=== PATIENT | male | born 1965 | race Caucasian/White ===

== ENCOUNTER 2021-01-30 07:33 | Outpatient (CLI) | payer OTHER, SELFPAY ==
--- NOTE | ~2021-01-30 | MR_ITS ---
EXAMINATION: MR knee LT wo con DATE: 01/30/2021 08:22 INDICATION: Meniscal injury TECHNIQUE: Magnetic resonance imaging (MRI) of the left knee was performed without intravenous contra st. Sequences included coronal PD-weighted FSE, coronal PD-weighted FS FSE, sagittal T2-weighted FSE , sagittal PD-weighted FS FSE and axial PD weighted fat saturated FSE. COMPARISON: None. FINDINGS: Medial compartment: There is a longitudinal horizontal tear extending to inferior articular surface at the junction of th e middle and peripheral thirds at the posterior horn transitioning into the peripheral third of the p osterior body. There is some partial-thickness chondral fissuring along the anterior weightbearing me dial femoral condyle and at the central aspect of the medial tibial plateau. Lateral compartment: Lateral meniscus is normal. Deep chondral fissuring with minimal underlying subarticular edema along the posterior aspect of the lateral tibial plateau and posterior weightbearing lateral femoral condyl e. Additional partial thickness chondral fissuring without underlying degenerative subchondral change s at the anterior weightbearing lateral femoral condyle. Patellofemoral compartment: Small region of partial-thickness chondral fissuring without degenerative subchondral changes at the medial patellar facet. The trochlear and remaining patellar cartilage is normal. Ligaments and tendons: Anterior and posterior cruciate ligaments are normal. The medial collateral ligament and fibular joshua ateral ligament complex are normal. The extensor mechanism is normal. The visualized medial and later al hamstring tendons as well as the iliotibial band are normal. Fluid: Physiologic amount of fluid in the joint space. No loose osteochondral bodies identified. Osseous/other: There is marrow edema along the medial rim of the anterior weightbearing medial femoral condyle where there is subtle linear subarticular low signal intensity suggesting tiny impaction fracture there is additional marrow edema along the anteromedial aspect of the medial tibial plateau below the level o f the articular cortex and without evident linear fracture line suspicious for a bone contusion. Othe rwise normal marrow signal with no pathologic marrow replacing process. IMPRESSION: 1. Bone contusion along the nonarticular anteromedial aspect of the medial tibial plateau and tiny vasquez barticular impaction fracture along the medial rim of the anterior weightbearing medial femoral condy le. 2. Longitudinal horizontal tear at the posterior horn and posterior body of the medial meniscus. 3. 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 Reviewed, dictated and finalized at location A. IMPRESSION: 1. Bone contusion along the nonarticular anteromedial aspect of the medial tibi al plateau and tiny subarticular impaction fracture along the medial rim of the anterior weightbearing medial femoral condyle. 2. Longitudinal horizontal tear at the posterior horn and posterior body of the medial meniscus. 3. 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
== END 2021-01-30 07:34 | disposition home or self-care (01) ==
LOC: ANHIMG 07:39
PROVIDERS: PCP Family Medicine; Visit Provider Family Medicine
DX: S83.242A Other tear of medial meniscus, current injury, left knee, initial encounter (principal); X58.XXXA Exposure to other specified factors, initial encounter; M17.12 Unilateral primary osteoarthritis, left knee
CPT/HCPCS: 73721

== ENCOUNTER 2022-01-24 07:00 | Emergency (ER) | payer OTHER, SELFPAY ==
[2022-01-24 06:54] VITALS: PULSE 88; RESP 20; TEMP 36.4; O2SAT 98
--- NOTE | 2022-01-24 06:59 | ECG_ITS ---
Measurements Intervals [place] Rate: 76 P: 72 CA: 173 QRS: 78 QRSD: 110 T: 64 QT: 366 QTc: 412 Interpretive Statements SINUS RHYTHM INCOMPLETE RIGHT BUNDLE BRANCH BLOCK [90+ ms QRS DURATION, TERMINAL R IN V1/V2, 40+ ms S IN I/aVL/V4/V5/V6] NO PREVIOUS ECG AVAILABLE FOR COMPARISON Electronically Signed On 01-24-2022 16:13:29 CDT by Ana Méndez M.D.
[2022-01-24 07:36] VITALS: BP 118/79; PULSE 89; RESP 18; O2SAT 98
--- NOTE | 2022-01-24 07:42 | ED.GENADULT ---
HPI - General Adult General Chief complaint: Allergic Reaction Stated complaint: WASP STING Time Seen by Provider: 01/24/22 07:06 History of Present Illness HPI narrative: 56-year-old male with a previous report of allergic reaction to wasp presented emergency department for evaluation of a wasp sting at approximately 6:00 this morning. Patient states he first noticed on his neck and went to swatted and then was bit on his left middle finger. Patient called EMS for this. Patient was treated with Benadryl IV by EMS. Patient states he had been previously instructed to use an EpiPen but has not had one for approximately 20 years. Patient states initially he did have some chest tightness but states this has resolved. At this time patient denies any chest pain or shortness of breath. Patient denies any swelling of his face or airway. Patient states he does feel at his baseline at this time. Related Data Home Medications Medication Instructions Recorded Confirmed esomeprazole magnesium 20 mg 20 mg PO DAILY 02/02/21 03/18/21 capsule,delayed release (Nexium) tadalafil 20 mg tablet (Cialis) 20 mg PO DAILY PRN 02/02/21 03/18/21 warfarin 4 mg tablet 4 mg PO QMWF 02/02/21 03/18/21 Allergies Allergy/AdvReac Type Severity Reaction Status Date / Time No Known Allergies Allergy Verified 03/18/21 09:42 Review of Systems Review of Systems: CONSTITUTIONAL: Denies fever, chills, or sweats. EYES: Denies visual changes, redness, or discharge. ENT: Denies rhinorrhea, congestion, sore throat, or otalgia. CARDIOVASCULAR: Denies chest pain, palpitations, or edema. RESPIRATORY: Denies cough or dyspnea. GASTROINTESTINAL: Denies abdominal pain, nausea, vomiting, or diarrhea. GENITOURINARY: Denies dysuria or hematuria. SKIN: See HPI MUSCULOSKELETAL: Denies back pain, joint pain, or myalgia. NEUROLOGIC: Denies headache, numbness, or weakness. [facility] Past Medical History Medical History History of bladder cancer History of cluster headache History of DVT (deep vein thrombosis) History of pulmonary embolism (~2011) History of stress test Surgical History Surgical History History of neck surgery History of repair of rotator cuff Irineo Shoulders (2004 & 2006) History of surgical removal of meniscus of knee (~03/2018) Family History Family History Mother Diabetes mellitus Cancer Father COPD (chronic obstructive pulmonary disease) Social History Social History Smoking packs per day: 1 Smoking cigarettes per day: 20.0 Smoking status: Current every day smoker Tobacco type: cigarettes Alcohol intake: never Exam Narrative: APPEARANCE: Well appearing, no pain, no distress, well-nourished. HEAD: normocephalic, atraumatic. EYES: PERRLA/EOMI, conjunctivae clear. NOSE: Normal no drainage THROAT: Pharynx clear, no exudate. NECK: Supple. No adenopathy, no masses. RESPIRATORY: Airway patent, respirations nonlabored. Clear to auscultation bilaterally, no rales, rhonchi, wheezing. CARDIOVASCULAR: Regular rate and rhythm without murmurs rubs or gallops. ABDOMINAL: Soft, nontender, nondistended, normal bowel sounds MUSCULOSKELETAL: Moves all extremities. Strength/ROM intact, No edema, No calf tenderness. Affected finger is neurovascular intact NEURO: Alert. Cranial nerves II through XII intact. Grossly intact SKIN: Swelling to left middle finger. PSYCHIATRIC: Normal affect/mood. Course Course Emergency Course: Patient continues to deny any complaints. Patient was started on a short course of prednisone. Patient was encouraged of close follow-up with his primary care physician. Vital Signs Vital signs: Vital Signs Temperature 97.6 F 01/24/22 06:54 Pulse Rate 88 01/24/22 06:54 Respiratory Rate 20
[2022-01-24] MEDS: FAMOTIDINE 20 MG/2 ML VIAL IV PUSH (07:50)
[2022-01-24] MEDS: predniSONE 10 MG TABLET 50 MG PO (07:51)
[2022-01-24 08:42] VITALS: BP 123/84; PULSE 75; RESP 20; O2SAT 99
== END 2022-01-24 08:55 | disposition home or self-care (01) ==
PROVIDERS: Emergency Provider Emergency Medicine; PCP Family Medicine
DX: T63.461A Toxic effect of venom of wasps, accidental (unintentional), initial encounter (principal); Z86.718 Personal history of other venous thrombosis and embolism; Z85.51 Personal history of malignant neoplasm of bladder; Z86.711 Personal history of pulmonary embolism; F17.210 Nicotine dependence, cigarettes, uncomplicated; Z79.01 Long term (current) use of anticoagulants; I45.10 Unspecified right bundle-branch block
CPT/HCPCS: 93005; 96374; 99284; J7512